=== PATIENT | male | born 1970 | race Caucasian/White ===

== ENCOUNTER 2020-04-05 17:15 | Emergency (ER) | payer MEDICAID ==
[~2020-04-05] VITALS: Ht 182.9 cm; Wt 104.8 kg
[2020-04-05 17:21] VITALS: BP 147/92
== END 2020-04-05 18:09 | disposition home or self-care (01) ==
LOC: ED 18:07
DX: Z03.818 Encounter for observation for suspected exposure to other biological agents ruled out (principal)
CPT/HCPCS: 36415; 87635; 99283